=== PATIENT | female | born 1965 | race Two or more races ===

== ENCOUNTER 2017-04-16 13:56 | Emergency (ER) | payer OTHER ==
--- NOTE | 2017-04-16 15:49 | EDM.PDOC ---
ED HPI GENERAL MEDICAL PROBLEM - General Chief Complaint: Genitourinary Problem Stated Complaint: ABDOMINAL PAIN- COLONOSCOPY 2 WEEKS AGO Time Seen by Provider: 04/16/17 15:49 Source of Information: Reports: Patient History Limitations: Reports: No Limitations - History of Present Illness INITIAL COMMENTS - FREE TEXT/NARRATIVE: 51-year-old female presents to the ED indicating that she had a colonoscopy on the of this month. Approximately 2-3 days later she started to develop urinary tract symptoms with urgency frequency and dysuria. Says progressed in intensity and severity and she has now developed fever chills and right flank pain. Not had any nausea or vomiting. She's been taking Azo to ease the bladder spasms. She was concerned that it may be related to the colonoscopy but she never had a Burnett catheter placed or anything that time. Onset: Gradual Onset Date: 04/07/17 Duration: Day(s):, Getting Worse, Intermittent Location: Reports: Abdomen, Back (Bilateral flank pain), Other (Her pubic abdominal pain) Quality: Reports: Burning ( dysuria urgency and frequency) Severity: Severe Improves with: Reports: None Worsens with: Reports: Other Context: Denies: Activity (Voiding), Exercise, Lifting, Sick Contact, Trauma, Other Associated Symptoms: Reports: Fever/Chills, Loss of Appetite, Malaise, Weakness. Denies: Headaches, Nausea/Vomiting, Rash, Seizure, Shortness of Breath, Syncope Treatments NEUROLOGICAL SURGEON: Reports: Acetaminophen Bladder Pain Score (Numeric/FACES): 8 - Related Data Allergies Allergy/AdvReac Type Severity Reaction Status Date / Time No Known Allergies Allergy Verified 04/16/17 15:05 Home Meds: Home Meds Aspirin [Halfprin] 81 mg PO DAILY 04/16/17 [History] Bisoprolol/Hydrochlorothiazide [Ziac 10-6.25 MG] 0 mg PO DAILY 04/16/17 [History ] Levofloxacin [Levaquin] 500 mg PO Q24H 9 Days #9 tablet 04/16/17 [Rx] atorvaSTATin [Lipitor] 10 mg PO DAILY 04/16/17 [History] Past Medical History Cardiovascular History: Reports: High Cholesterol, Hypertension Gastrointestinal History: Reports: Other (See Below) Other Gastrointestinal History: Colonoscopy performed April 05 in [place] identified several polyps of weight which she is waiting the biopsy report on. Per her wishes are back on 01 May for further colonoscopy - Past Surgical History GI Surgical History: Reports: Colonoscopy Other GI Surgeries/Procedures: due to age and family history of colon cancer pt had colonscopy done on 04-03-17 Social & Family History - Tobacco Use Smoking Status *Q: Never Smoker - Caffeine Use Caffeine Use: Reports: Coffee, Tea - Recreational Drug Use Recreational Drug Use: No - Living Situation & Occupation Living situation: Reports: ED ROS GENERAL - Review of Systems Review Of Systems: See Below Constitutional: Reports: Fever, Chills, Malaise, Weakness, Fatigue, Decreased Appetite, Weight Loss, Weight Gain Respiratory: Reports: No Symptoms Cardiovascular: Reports: No Symptoms Endocrine: Reports: Fatigue GI/Abdominal: Reports: Abdominal Pain (Suprapubic abdominal pain) : Reports: Dysuria, Flank Pain, Frequency (Bilateral but worse on the right as compared to the left), Urgency Musculoskeletal: Reports: Back Pain Skin: Reports: No Symptoms (Both flanks) Neurological: Reports: No Symptoms Psychiatric: Reports: No Symptoms Hematologic/Lymphatic: Reports: No Symptoms Immunologic: Reports: No Symptoms ED EXAM, RENAL/ - Physical Exam Exam: See Below Exam Limited By: Language Barrier (Language barrier but her daughter and act as interpreters.) General Appearance: Alert, WD/WN, Moderate Distress, Other (She does feel quite warm to palpation. Certainly has a fever.) Throat/Mouth: Normal Inspection, Normal Lips, Normal Teeth, Normal Oropharynx Head: Atraumatic, Normocephalic Neck: Normal Inspection, Supple, Non-Tender, Full Range of Motion. No: Lymphadenopathy (L), Lymphadenopathy (R) Respiratory/Chest: No Respiratory Distress, Lungs Clear, Normal Breath Sounds, No Accessory Muscle Use, Chest Non-Tender Cardiovascular: Normal Peripheral Pulses, Regular Rate, Rhythm, No Edema, No Gallop, No Murmur Back Exam: CVA Tenderness (L), CVA Tenderness (R) Extremities: Normal Inspection (Worse on the right as compared to the left.), Normal Range of Motion, Non-Tender Neurological: Alert, Oriented, CN II-XII Intact, Normal Cognition, Normal Gait Psychiatric: Normal Affect, Normal Mood Skin Exam: Warm, Dry, Intact, Normal Color, No Rash Course - Vital Signs Last Recorded V/S: Last Vital Signs Temp 36.8 C 04/16/17 14:57 Pulse 70 04/16/17 14:57 Resp 20 04/16/17 14:57 BP 153/109 H 04/16/17 14:57 Pulse Ox 95 04/16/17 14:57 - Orders/Labs/Meds Orders: Active Orders 24 hr Category Date Time Status Peripheral IV Care [RC] . DIRECTED Care 04/16/17 16:04 Active CULTURE URINE [RM] Stat Lab 04/16/17 15:02 Received Peripheral IV Insertion Adult [OM.PC] Stat Oth 04/16/17 16:04 Ordered Labs: Laboratory Tests 04/16/17 04/16/17 04/16/17 Range/Units 15:02 17:29 17:29 WBC 10.80 H (3.98-10.04) K/mm3 RBC 4.35 (3.98-5.22) M/mm3 Hgb 13.3 (11.2-15.7) gm/L Hct 39.4 (34.1-44.9) % MCV 90.6 (79.4-94.8) fl MCH 30.6 (25.6-32.2) pg MCHC 33.8 (32.2-35.5) g/dl RDW Std Deviation 46.7 H (36.4-46.3) fL Plt Count 259 (182-369) K/mm3 MPV 10.9 (9.4-12.3) fl Neutrophils % (Manual) 53 (40-60) % Band Neutrophils % 0 (0-10) % Lymphocytes % (Manual) 31 (20-40) % Atypical Lymphs % 0 % Monocytes % (Manual) 11 H (2-10) % Eosinophils % (Manual) 3 (0.7-5.8) % Basophils % (Manual) 0 L (0.1-1.2) Myelocytes % 2 Platelet Estimate Adequate Plt Morphology Comment Normal RBC Morph Comment Normal Sodium 139 (136-145) mEq/L Potassium 4.0 (3.5-5.1) mEq/L Chloride 102 (98-107) mEq/L Carbon Dioxide 28 (21-32) mEq/L Anion Gap 13.0 (5-15) BUN 10 (7-18) mg/dL Creatinine 0.7 (0.55-1.02) mg/dL Est Cr Clr Drug Dosing 77.77 mL/min Estimated GFR (MDRD) > 60 (>60) mL/min BUN/Creatinine Ratio 14.3 (14-18) Glucose 108 H (74-106) mg/dL Calcium 8.7 (8.5-10.1) mg/dL Total Bilirubin 0.4 (0.2-1.0) mg/dL AST 66 H (15-37) U/L ALT 136 H (14-59) U/L Alkaline Phosphatase 111 (46-116) U/L C-Reactive Protein 1.4 H* (<1.0) mg/dL Total Protein 7.6 (6.4-8.2) g/dl Albumin 3.7 (3.4-5.0) g/dl Globulin 3.9 gm/dL Albumin/Globulin Ratio 1.0 (1-2) Urine Color [place] H (Yellow) Urine Appearance Clear (Clear) Urine pH 5.5 (5.0-8.0) Ur Specific [place] 1.010 (1.005-1.030) Urine Protein 2+ H (Negative) Urine Glucose (UA) Trace H (Negative) Urine Ketones Negative (Negative) Urine Occult Blood 1+ H (Negative) Urine Nitrite Positive H (Negative) Urine Bilirubin Negative (Negative) Urine Urobilinogen 1.0 (0.2-1.0) Ur Leukocyte Esterase 3+ H (Negative) Urine RBC 0-5 (0-5) /hpf Urine WBC 50-75 H (0-5) /hpf Urine WBC Clumps Moderate (NOT SEEN) /hpf Ur Epithelial Cells 0-5 (0-5) /hpf Urine Bacteria Moderate H (FEW) /hpf Urine Mucus Not seen (FEW) /hpf Meds: Medications Discontinued Medications Generic Name Dose Route Start Last Admin Trade Name Freq PRN Reason Stop Dose Admin Ceftriaxone Sodium 2 gm/ 100 mls @ 200 mls/hr 04/16/17 16:04 04/16/17 16:24 Sodium Chloride IV 04/16/17 16:33 200 mls/hr ONETIME ONE Administration Sodium Chloride 10 ml 04/16/17 16:04 04/16/17 16:25 Saline Flush FLUSH 10 ml ASDIRECTED PRN Administration Keep Vein Open - Radiology Interpretation Free Text/Narrative:: 51-year-old female is [place] descent presents to the ED with dysuria urgency frequency of 5-7 days duration. She is not now developing fever chills and flank pain. She does have costovertebral angle tenderness bilaterally worse on the right as compared to the left. The urinalysis was collected by the triage nurse and is strongly positive for infective process with 3+ leukocyte esterase and 50-100 WBCs per high-powered field with a few clumps. Many bacteria noted. Urine culture was ordered. The patient is taking Azo and culture may not grow out anything. Plan Rocephin 2 g IV. I will have CBC CMP and a CRP drawn. - Re-Assessments/Exams Free Text/Narrative Re-Assessment/Exam: 04/16/17 17:10 White count is 10.80 with 53% neutrophils and no bands. Hemoglobin is 13.3 with hematocrit of 39.4. Blood count is 259,000. Sodium is 139. Potassium 4.0. Chloride 102. Bicarbonate 28. And a gap is 13.0. Creatinine is 0.7. Glucose is 108. AST is 66 ALT is 136 unclear why her transaminases are elevated. Fatty liver versus meter near Z celebrations. CRP is 1.4.. Urinalysis is strongly orange in color because she is taking Azo. Was 2+ protein 1+ occult blood positive nitrates 3+ leukocyte esterase with 50-75 WBCs per high-power field and WBCs noted to be in clumps. Urine bacteria moderate. 04/16/17 17:30: Patient is feeling better. She has completed 2 g of Rocephin IV. She'll be discharged on Levaquin 500 mg once daily for the next 9 days which he is to fill tomorrow. Follow-up with personal physician or return to the ED if any further problems occur. Continue Motrin 600 mg every 6 hours as needed for fever and pain relief. Departure - Departure Time of Disposition: 17:23 Disposition: Home, Self-Care 01 Condition: Fair Clinical Impression: Pyelonephritis, Upper urinary tract infection - Discharge Information Prescriptions: Levofloxacin [Levaquin] 500 mg PO Q24H 9 Days #9 tablet Instructions: Pyelonephritis, Adult, [id number], Urinary Tract Infection, Adult, [id number] Referrals: Yumi Mae CONTENT ENGINEER [Primary Care Provider] - Forms: ED Department Discharge Additional Instructions: Evaluation the emergency room today in regards to development of upper urinary tract infection. Lower urinary tract symptoms started several days ago and it progressed to right flank pain with low-grade fever. This indicates the right kidney in particular showing evidence of infection call pyelonephritis. Therefore treatment was started in the ED with intravenous antibiotics. You were given Rocephin 2 g intravenously. You will need to grain picker a prescription tomorrow for antibiotics to take once daily for the next 9 days to clear up infection completely. Continue ibuprofen 600 mg every 6 hours as needed for back pain and/or fever relief. Plenty of fluids. Expect marked improvement in back pain and symptoms over the next 24 hours. Follow-up with personal care physician if any further problem's occur. - My Orders Last 24 Hours: My Active Orders 04/16/17 15:02 CULTURE URINE [RM] Stat 04/16/17 16:04 Peripheral IV Care [RC] . DIRECTED Peripheral IV Insertion Adult [OM.PC] Stat - Assessment/Plan Last 24 Hours: My Active Orders 04/16/17 15:02 CULTURE URINE [RM] Stat 04/16/17 16:04 Peripheral IV Care [RC] . DIRECTED Peripheral IV Insertion Adult [OM.PC] Stat
[2017-04-16] MEDS ORDERED: Sodium Chloride 0.9% 10 ML Syringe FLUSH PRN (16:04)
[2017-04-16] MEDS ORDERED: cefTRIAXone 2 GM in Sodium Chloride 0.9% 100 ML IV ONE (16:04)
== END 2017-04-16 17:40 | disposition home or self-care (01) ==
LOC: JD.ED 13:56
DX: N12 Tubulo-interstitial nephritis, not specified as acute or chronic (principal); N39.0 Urinary tract infection, site not specified; E78.00 Pure hypercholesterolemia, unspecified; I10 Essential (primary) hypertension; Z79.82 Long term (current) use of aspirin; Z79.899 Other long term (current) drug therapy
CPT/HCPCS: 36415; 80053; 81001; 85025; 86140; 87086; 96365; 99283; J0696; J7030; J7050